=== PATIENT | female | born 1970 | race Caucasian/White ===

== ENCOUNTER 2016-12-26 15:41 | Inpatient (IN) | payer BC ==
--- NOTE | ~2016-12-26 | DS ---
Discharge Summary [facility] [address] [place]. [address] NAME: NIEVES APONTE : 72 STATUS : DIS Sandra PAT#: [id number] AGE: 46 ADM/REG DATE : 12/26/16 MR#: [id number] REPORT SERV DATE: 12/30/16 DICTATED BY: DANISH CRUMP DATE: 12/29/16 REPORT STATUS : Draft TRANSCRIBED BY: ANNE DATE: 12/29/16 ADMISSION DATE: 12/26/2016 DISCHARGE DATE: 12/29/2016 CONSULTATION: 1. Neurology. 2. Cardiology, Dr. Roman. INVASIVE PROCEDURES: None. DISCHARGE DIAGNOSES: 1. Paroxysmal atrial fibrillation. 2. Benign paroxysmal positional vertigo. 3. Hypercholesterolemia. 4. Chronic sinusitis. 5. History of cerebrovascular accident. DISCHARGE CONDITION: Stable. IMAGING: MRI brain without contrast. Impression: 1. No acute intracranial pathology. 2. Small 2 x 3 mm old lacunar infarct, left michelle. 3. Otherwise unremarkable noncontrast MRI of the brain. No acute CVA identified. Echocardiogram. Summary: Normal left ventricular size and systolic function. Estimated ejection fraction 55%. No regional wall motion abnormalities identified. Normal RV size and systolic function. Normal left atrial size. No significant valve disease. HISTORY OF PRESENT ILLNESS: For detailed HPI, please make reference to Dr. Juan R Urena's dictation on 12/26/2016. In brief, this is a 46-year-old female with medical history of dyslipidemia, who presented to the emergency department with extreme vertigo. The patient reported that she was in her usual state of health; however, on the morning of presentation, she woke up and felt slightly dizzy. There was associated nausea and vomiting. She went to the bed to lie down for an hour. When she tried to get up, she developed extreme vertigo that remained persistent. There was associated 10 episodes of vomiting and nausea, hence she decided to come to the ER for further evaluation. In the ER, temperature was 98.4, pulse was 118, blood pressure was 132/94, respiratory rate was 18. Physical exam was noted for a tachycardic rhythm, but regular. No murmurs, no rubs, no gallop. No extremity swelling. Neurologic exam showed cranial nerves 2 through 12 intact. Strength in all extremities 5/5. She was alert and oriented x3. Laboratory studies were essentially within normal limits. EKG in the ER showed sinus rhythm; however, EKG strip with the EMS was reported to have shown rapid atrial fibrillation. Hence, an assessment of severe vertigo with paroxysmal atrial fibrillation was made in the ER. The patient was admitted to the Hospitalist Service for further workup. HOSPITAL COURSE: Discharge Summary [address] [place]. [address] NAME: NIEVES APONTE : 72 STATUS : DIS Sandra PAT#: [id number] AGE: 46 ADM/REG DATE : 12/26/16 MR#: [id number] REPORT SERV DATE: 12/30/16 DICTATED BY: DANISH CRUMP DATE: 12/29/16 REPORT STATUS : Draft TRANSCRIBED BY: ANNE DATE: 12/29/16 1. Benign paroxysmal positional vertigo. Neurology was consulted. The patient underwent an MRI that showed an old left michelle lacunar infarct. The patient continued to have persistent vertigo in the hospital, which was made worse by rotating her head to the left and right. The patient was started on meclizine. Scopolamine patch was added. Physical Therapy was consulted, underwent some vestibular rehabilitation exercise. The patient's vertigo subsequently gradually improved during the course of this admission. At the time of discharge, the patient was able to ambulate without significant vertiginous symptoms. The patient was advised to continue meclizine p.r.n. and follow up with primary care physician as an outpatient. 2. Atrial fibrillation, noted by the EMS on their EKG strip en route to the hospital. Repeat EKG during the course of this admission showed sinus rhythm, but tachycardia. Cardiology was consulted. It was noted that the patient's heart rate remained within baseline in the low 60s. Hence no beta len was added to the patient's medication; however, the patient was started on Eliquis based on a CHADS-VASc score of 2. The patient had an echocardiogram that showed normal left ventricular ejection fraction. No valvular abnormalities. The patient was advised to start Eliquis and follow up with Cardiology as an outpatient. 3. Old left michelle lacunar stroke, which was noted on MRI of the head. No focal neurologic deficit was noted during this admission. The patient was advised to continue aspirin and statin. DISCHARGE DISPOSITION: Home. DISCHARGE ACTIVITIES: As tolerated. DISCHARGE MEDICATIONS: 1. Meclizine 25 mg p.o. q.8 hours p.r.n. 2. Apixaban 5 mg p.o. b.i.d. 3. Aspirin 81 mg p.o. daily. 4. Lipitor 80 mg p.o. at bedtime. 5. Flonase 1 spray in each nostril b.i.d. p.r.n. 6. Loratadine 10 mg p.o. daily. DISCHARGE FOLLOWUP: 1. Follow up with primary care physician within one week of discharge. 2. Follow up with Cardiology within two to three weeks of discharge. Greater than 30 minutes was used to prepare this patient's discharge, reconcile medication, and advise the patient on discharge plans and followup. DICTATED BY: MD IRVIN Caal/ANNE Discharge Summary [address] [address] NAME: NIEVES APONTE : 72 STATUS : DIS Sandra PAT#: [id number] AGE: 46 ADM/REG DATE : 12/26/16 MR#: [id number] REPORT SERV DATE: 12/30/16 DICTATED BY: DANISH CRUMP DATE: 12/29/16 REPORT STATUS : Draft TRANSCRIBED BY: ANNE DATE: 12/29/16 Danish Crump MD / [id number] CC: MD Shanda Caal M.D.
--- NOTE | ~2016-12-26 | CN ---
Consultation Report [facility] [address] [place]. [address] NAME: NIEVES FUCHS : 72 STATUS : ADM Sandra PAT#: [id number] AGE: 46 ADM/REG DATE : 12/26/16 MR#: [id number] REPORT SERV DATE: 12/27/16 DICTATED BY: JOSE FRANCISCO MARTINEZ DATE: 12/27/16 REPORT STATUS : Draft TRANSCRIBED BY: MODWilfrido DATE: 12/27/16 CONSULTATION NOTE DATE OF CONSULTATION: 12/27/2016 PRIMARY MOBILE APPLICATION TESTER: Dr. Ramirez. CHIEF COMPLAINT: Vertigo. REASON FOR CONSULTATION: Possible atrial fibrillation. SOURCE: The patient and her chart. HISTORY OF PRESENT ILLNESS: Ms. Fuchs is a very pleasant 46-year-old white woman with no significant past cardiac history. She was in her usual state of health until yesterday morning when she developed vertigo associated with one episode of nausea and vomiting. The dizziness became debilitating, closing her eyes seemed to help. She reports that the room appears to be spinning to the right. She has not had any syncope. Yesterday, she did have some fast palpitations, but not currently. She has not had any chest pain, shortness of breath. She does have occasional left ankle swelling. REVIEW OF SYSTEMS: All other systems are negative. ALLERGIES: NO KNOWN DRUG ALLERGIES. MEDICATIONS AT HOME: None. CARDIAC RISK FACTORS: None. SOCIAL HISTORY: The patient lives in [place]. She is . She has three children, alive and well. 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 FAMILY HISTORY: Mother had permanent pacemaker at age 77. PAST MEDICAL HISTORY: Significant for murmur as a child. No prior strokes. Status post tonsillectomy. Status post gallbladder surgery. Status post partial hysterectomy. PHYSICAL EXAMINATION: GENERAL: She is a well-developed, well-nourished, middle-aged white woman, in no acute distress. VITAL SIGNS: Blood pressure 119/56, pulse 65, temperature 98.4. HEENT: Anicteric. No xanthelasma, lips without cyanosis. NECK: No JVD, no thyromegaly, carotids 2+ and symmetrical without bruits. Consultation Report [facility] [id number] [place]. [address] NAME: NIEVES FUCHS : 72 STATUS : ADM Sandra PAT#: [id number] AGE: 46 ADM/REG DATE : 12/26/16 MR#: [id number] REPORT SERV DATE: 12/27/16 DICTATED BY: JOSE FRANCISCO MARTINEZ DATE: 12/27/16 REPORT STATUS : Draft TRANSCRIBED BY: ANNE DATE: 12/27/16 LUNGS: Clear to auscultation. No use of accessory muscles. COR: Regular rate and rhythm. Normal S1 and S2. No S3 or S4. No murmurs or rubs. PMI left 5th ICS, MCL . ABD: Positive bowel sounds, soft, non-tender. No bruits, no hepatomegaly. MS: No kyphosis. Normal muscle tone. EXT: Femoral and pedal pulses 2+ and symmetrical. No clubbing, cyanosis or edema. No varicosities. SKIN: No venous stasis changes. NEURO: Alert and oriented x 3. EKG: EKG reveals normal sinus rhythm, cannot exclude anterior myocardial infarction of undetermined age. The telemetry strips are mostly sinus rhythm. There are two strips from approximately 1537 hours and 1541 hours today which revealed paroxysmal atrial fibrillation with borderline rapid ventricular response. LABORATORY EXAMINATION: Chest x-ray, no acute cardiopulmonary process. The BNP level of 17. Sodium 139, potassium 3.8, chloride 107, carbon dioxide 23, glucose 81, BUN 13, creatinine 0.71. Cholesterol 183, HDL 45, LDL 121, triglycerides 87, CPK 61, MB less than 0.5. Troponin I less than 0.02. TSH of 3.74, free T4 of 0.83. White count of 8.2, hemoglobin 12.7, hematocrit 39.4, platelets 270,000. INR 1.2, PTT of 26.4. The MRI brain revealed no acute abnormality, small 2 mm to 3 mm old lacunar infarct left michelle, otherwise unremarkable noncontrast MRI of the brain, no acute CVA identified. ECHOCARDIOGRAM: Normal left ventricular systolic function, LVEF of 55%. No regional wall motion abnormalities. Normal RV size and systolic function. Normal left atrial size. No significant valve disease. IMPRESSION: 1. Paroxysmal atrial fibrillation identified on telemetry strips from 1537 hours and 1541 hours today. 2. CHADS2 score of 2 for stroke identified on MRI scanning. 3. Vertigo, thought by Neurology, possibly related to old or subacute stroke left michelle. 4. Hypercholesterolemia. RECOMMENDATIONS: 1. I agree with Eliquis therapy. 2. I agree with statin therapy. 3. Follow up with Dr. Ramirez in the office. 4. Should she have increased burden of atrial fibrillation, would consider atrial fibrillation ablation given her young age. LOIDA/ANNE Consultation Report [place] [address] [address] NAME: NIEVES FUCHS : 72 STATUS : ADM Sandra PAT#: [id number] AGE: 46 ADM/REG DATE : 12/26/16 MR#: [id number] REPORT SERV DATE: 12/27/16 DICTATED BY: JOSE FRANCISCO MARTINEZ DATE: 12/27/16 REPORT STATUS : Draft TRANSCRIBED BY: ANNE DATE: 12/27/16 Jose Francisco Martinez M.D. / [id number] CC: MD Shanda Caal M.D.
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
--- NOTE | ~2016-12-26 | CN ---
Consultation Report [facility] [address] [place]. [address] NAME: NIEVES APONTE : 72 STATUS : ADM Sandra PAT#: [id number] AGE: 46 ADM/REG DATE : 12/26/16 MR#: [id number] REPORT SERV DATE: 12/27/16 DICTATED BY: RABIA CAMACHO DATE: 12/27/16 REPORT STATUS : Draft TRANSCRIBED BY: MODWilfrido DATE: 12/27/16 NEUROLOGY CONSULTATION DATE OF CONSULTATION: 12/27/2016 REASON FOR CONSULTATION: Vertigo. HOSPITALIST: Dr. Danish Leung. HISTORY OF PRESENT ILLNESS: The patient is a 46-year-old female, who had an episode of sinusitis three weeks ago. She was placed on Cipro. She stated that she took her medication as prescribed. However, she still has had some sinusitis-type symptoms. Yesterday, she was making breakfast for her three daughters and at approximately 10:15 a.m., she turned quickly towards the left and had a sudden onset of vertigo. She felt that the room was spinning around. She had a hard time maintaining her balance and suddenly became nauseated and vomited. She was unable to drive, so she called 911, and was brought to the hospital for further evaluation and treatment. While on the ambulance ride, one of the paramedics noticed that her heart rate was rapid and she was in atrial fibrillation. This was paroxysmal. She also had some atrial fibrillation in the emergency department. When questioned more extensively, the patient mentioned that she was unaware that she had an abnormal heart rhythm. Today at 11:00 a.m., the patient got up, and she also had another episode of vertigo. She experienced spinning around, but today she felt like she was spinning around. She also had nausea without vomiting. She also mentions that she has a headache on a scale of 0 to 10. She states that it is bifrontal and has associated photophobia. The patient mentions that she has had "sinus headaches" throughout her life. She has had to come to the emergency department once for very severe headache. PAST MEDICAL HISTORY: GERD, heart murmur, and sinus headaches. PAST SURGICAL HISTORY: Total abdominal hysterectomy, tonsillectomy, adenoidectomy, and cholecystectomy. HOME MEDICATIONS: None. ALLERGIES: NONE. SOCIAL HISTORY: The patient is a . 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 She does not work. She is a homemaker. She has three children. She does not smoke, drink alcoholic beverages, or use illicit drugs. FAMILY HISTORY: Her mother is alive, has a pacemaker. Her father has heart issues and she is an only child. Consultation Report [address] [place]. [address] NAME: NIEVES APONTE : 72 STATUS : ADM Sandra PAT#: [id number] AGE: 46 ADM/REG DATE : 12/26/16 MR#: [id number] REPORT SERV DATE: 12/27/16 DICTATED BY: RABIA CAMACHO DATE: 12/27/16 REPORT STATUS : Draft TRANSCRIBED BY: ANNE DATE: 12/27/16 REVIEW OF SYSTEMS: For pertinent positives, please refer to HPI. PHYSICAL EXAMINATION: GENERAL: The patient is a 46-year-old female, who stands 5 feet 4 inches tall and weighs 182 pounds. VITAL SIGNS: She is afebrile. Heart rate 76, respiratory rate 16, O2 saturations on room air 96%, blood pressure 119/56. NEURO: The patient is alert she appears to be in mild discomfort. She is oriented x4. Communicates appropriately, is slightly anxious. Pupils are 3 mm. PERRLA. Cranial nerves 2 through 12 are intact, however there is slight nystagmus with lateral gaze more so to the left than the right. Vicente test, there is lateral lateralization over to the left. Vision via confrontation is full in both fay. Upper and lower extremity strength is equal bilaterally, 5/5. There is no sensory loss. DTRs are 3+ in the upper extremities and 2+ in the lower extremities. The patient did not get up to ambulate due to her vertigo. NECK: No carotid bruits, JVD, thyromegaly. CHEST: Lung sounds are clear. CARDIAC: Regular rate and rhythm. LABORATORY DATA: CBC is normal. BMP normal. Cholesterol values are mildly elevated with an LDL of 121. Chest x-ray, no acute changes. Echocardiogram, LVEF of 55%. No thrombus. No shunt. There is a strip from the emergency department yesterday that shows episode of paroxysmal atrial fibrillation, time is 1543 hours. ASSESSMENT/PLAN: 1. Benign paroxysmal positional vertigo most likely secondary to recent sinusitis. The patient will be placed on a scopolamine transdermal patch 1 mg every 72 hours. Her sinusitis should be treated symptomatically per the hospitalist. 2. History of stroke and the MRI for today revealed that the patient had an old stroke in the left michelle region. The patient will be started on Eliquis since she did show paroxysmal atrial fibrillation. She will be placed on aspirin 81 mg daily and Lipitor 80 mg at bedtime. 3. Cardiology will be consulted for her paroxysmal atrial fibrillation. Thank you again for including us in consultation. CESAR/ANNE Rabia Camacho DNP, [facility]- / [id number] Consultation Report [address] [address] NAME: NIEVES APONTE : 72 STATUS : ADM Sandra PAT#: [id number] AGE: 46 ADM/REG DATE : 12/26/16 MR#: [id number] REPORT SERV DATE: 12/27/16 DICTATED BY: RABIA CAMACHO DATE: 12/27/16 REPORT STATUS : Draft TRANSCRIBED BY: ANNE DATE: 12/27/16 CC: MD Shanda Caal M.D.
--- NOTE | ~2016-12-26 | PUL ---
[facility] [id number] [place]. [address] NAME: NIEVES APONTE : 72 STATUS : DIS Sandra PAT#: [id number] AGE: 46 ADM/REG DATE : 12/26/16 MR#: [id number] REPORT SERV DATE: 12/31/16 DICTATED BY: NIRALI ALMAGUER IV DATE: 12/30/16 REPORT STATUS : Draft TRANSCRIBED BY: MODL DATE: 12/30/16 PULMONARY FUNCTION TEST OVERNIGHT OXIMETRY Studies performed on room air. 6 hours and 5 minutes of data available for review. The mean oxygen saturation is 95.8%. Lowest scored saturation is 93%. The patient spent no time with oxygen saturations less than 88%. There were rare episodes of oxygen saturation variation of sawtooth pattern that appeared to be isolated events. IMPRESSION: No significant nocturnal hypoxemia on room air. There is no pattern consistent with obstructive sleep apnea. Of note, this study appears to demonstrate the same data as a different patient from the same night. It is unclear which patient's data belongs to. Clinical correlation is suggested. SUZETTE/ANNE Nirali Almaguer IV, M.D. / [id number] CC: MD Shanda Caal M.D.
[2016-12-26] MEDS ORDERED: *DENIES (16:14)
[2016-12-26 16:18] LABS: BASOPHILS 0.1 %; BASOPHILS ABSOLUTE 0.01 10/3/uL (0.0-0.16); EOSINOPHILS 0.3 %; EOSINOPHILS ABSOLUTE 0.03 10/3/uL (0.0-0.53); ER CBC TAT 0 Hrs 05 Mins; HEMATOCRIT 42.6 % (36.0-48.0); IMMATURE GRANULOCYTES 0.2 %; IMMATURE GRANULOCYTES ABSOLUTE 0.02 10/3/uL (0.0-0.11); LYMPHOCYTES 10.3 %; MEAN CORPUS HGB CONC 32.9 g/dL (32.0-36.0); MEAN CORPUSCULAR HEMOGLOB 28.2 pg (26.0-34.0); MEAN CORPUSCULAR VOLUME 85.9 fL (80-100); MEAN PLATELET VOLUME 9.6 fL (9.2-13.0); MONOCYTES 3.3 %; MONOCYTES ABSOLUTE 0.29 10/3/uL (0.21-1.20); NEUTROPHILS 85.8 %; NEUTROPHILS ABSOLUTE 7.47 10/3/uL (2.02-8.40); PLATELET COUNT 279 10/3/uL (150-400); RBC DISTRIBUTION WIDTH 13.1 % (12.0-16.0); RED CELL COUNT 4.96 10/6/uL (4.0-5.6); WHITE BLOOD CELLS 8.7 10/3/uL (4.5-10.5)
[2016-12-26 16:21] LABS: MANUAL DIFF NO %
[2016-12-26 16:27] LABS: INTERNATIONAL NORMAL RATI 1.1 UNITS (-); PARTIAL THROMBO TIME 34.5 SEC (22.5-37.2); PROTIME (NOT ORD) 14.1 SEC (12.0-14.5)
[2016-12-26 16:34] LABS: BUN (BLOOD UREA NITROGEN) 12 MG/DL (6-23); CALCIUM, SERUM 9.1 MG/DL (8.5-10.4); CHEST PAIN PROFILE TAT 0 Hrs 21 Mins; CHLORIDE, SERUM 104 MMOL/L (96-112); CO2 (CARBON DIOXIDE) 28 MMOL/L (24-34); CREATININE 0.75 MG/DL (0.55-1.02); GFR AFRICAN AMERICAN 112 ML/MIN (>=60); GFR NON AFRICAN AMERICAN 96 ML/MIN (>=60); GLUCOSE, SERUM 110 MG/DL (60-99); POTASSIUM, SERUM 3.7 MMOL/L (3.5-5.3); SODIUM, SERUM 138 MMOL/L (135-148); TROPONIN I <0.02 NG/ML (<0.05)
[2016-12-27 06:57] LABS: BASOPHILS 0.2 %; BASOPHILS ABSOLUTE 0.02 10/3/uL (0.0-0.16); EOSINOPHILS 1.2 %; HEMATOCRIT 39.4 % (36.0-48.0); HEMOGLOBIN 12.7 g/dL (12.0-16.0); IMMATURE GRANULOCYTES 0.1 %; IMMATURE GRANULOCYTES ABSOLUTE 0.01 10/3/uL (0.0-0.11); LYMPHOCYTES 22.5 %; LYMPHOCYTES ABSOLUTE 1.85 10/3/uL (0.67-4.30); MEAN CORPUS HGB CONC 32.2 g/dL (32.0-36.0); MEAN CORPUSCULAR HEMOGLOB 27.9 pg (26.0-34.0); MEAN CORPUSCULAR VOLUME 86.6 fL (80-100); MEAN PLATELET VOLUME 9.9 fL (9.2-13.0); MONOCYTES 7.1 %; MONOCYTES ABSOLUTE 0.58 10/3/uL (0.21-1.20); NEUTROPHILS 68.9 %; NEUTROPHILS ABSOLUTE 5.65 10/3/uL (2.02-8.40); PLATELET COUNT 270 10/3/uL (150-400); RBC DISTRIBUTION WIDTH 13.4 % (12.0-16.0); RED CELL COUNT 4.55 10/6/uL (4.0-5.6); WHITE BLOOD CELLS 8.2 10/3/uL (4.5-10.5)
[2016-12-27 07:01] LABS: MANUAL DIFF NO %
[2016-12-27 07:02] LABS: PARTIAL THROMBO TIME 26.4 SEC (22.5-37.2)
[2016-12-27 07:07] LABS: INTERNATIONAL NORMAL RATI 1.2 UNITS (-); PROTIME (NOT ORD) 14.6 SEC (12.0-14.5)
[2016-12-27 07:21] LABS: ALBUMIN 3.2 G/DL (3.5-5.0); ALKALINE PHOSPHATASE 76 U/L (45-117); BUN (BLOOD UREA NITROGEN) 13 MG/DL (6-23); CALCIUM, SERUM 8.8 MG/DL (8.5-10.4); CHLORIDE, SERUM 107 MMOL/L (96-112); CHOL/HDL RATIO(NOT ORDER) 4.1 (0-5); CHOLESTEROL 183 MG/DL (< 200); CPK 61 U/L (0-200); CREATININE 0.71 MG/DL (0.55-1.02); FREE T4 0.83 NG/DL (0.76-1.46); GFR AFRICAN AMERICAN 119 ML/MIN (>=60); GFR NON AFRICAN AMERICAN 103 ML/MIN (>=60); GLOBULIN 3.2 G/DL (2.5-4.1); HDL CHOLESTEROL 45 MG/DL (> 49); LDL CHOLESTEROL 121 MG/DL (< 130); NON-HDL CHOLESTEROL 138 MG/DL (< 160); POTASSIUM, SERUM 3.8 MMOL/L (3.5-5.3); SGOT(AST) 18 U/L (5-40); SGPT(ALT) 19 U/L (5-65); SODIUM, SERUM 139 MMOL/L (135-148); TOTAL BILIRUBIN 0.4 MG/DL (0-1.2); TOTAL PROTEIN 6.4 G/DL (6.0-8.5); TRIGLYCERIDE 87 MG/DL (< 150); TROPONIN I <0.02 NG/ML (<0.05)
[2016-12-27 07:22] LABS: CK-MB < 0.5 NG/ML; CO2 (CARBON DIOXIDE) 23 MMOL/L (24-34); GLUCOSE, SERUM 81 MG/DL (60-99)
[2016-12-28 08:41] LABS: BASOPHILS 0.3 %; BASOPHILS ABSOLUTE 0.02 10/3/uL (0.0-0.16); EOSINOPHILS 1.3 %; HEMATOCRIT 39.5 % (36.0-48.0); HEMOGLOBIN 12.7 g/dL (12.0-16.0); IMMATURE GRANULOCYTES 0.3 %; IMMATURE GRANULOCYTES ABSOLUTE 0.02 10/3/uL (0.0-0.11); LYMPHOCYTES 24.8 %; LYMPHOCYTES ABSOLUTE 1.84 10/3/uL (0.67-4.30); MEAN CORPUS HGB CONC 32.2 g/dL (32.0-36.0); MEAN PLATELET VOLUME 9.4 fL (9.2-13.0); MONOCYTES ABSOLUTE 0.37 10/3/uL (0.21-1.20); NEUTROPHILS 68.3 %; NEUTROPHILS ABSOLUTE 5.08 10/3/uL (2.02-8.40); PLATELET COUNT 271 10/3/uL (150-400); RBC DISTRIBUTION WIDTH 13.2 % (12.0-16.0); RED CELL COUNT 4.54 10/6/uL (4.0-5.6); WHITE BLOOD CELLS 7.4 10/3/uL (4.5-10.5)
[2016-12-28 08:42] LABS: MANUAL DIFF NO %
[2016-12-28 08:58] LABS: BUN (BLOOD UREA NITROGEN) 12 MG/DL (6-23); CALCIUM, SERUM 8.8 MG/DL (8.5-10.4); CHLORIDE, SERUM 107 MMOL/L (96-112); CO2 (CARBON DIOXIDE) 27 MMOL/L (24-34); CREATININE 0.86 MG/DL (0.55-1.02); GFR AFRICAN AMERICAN 95 ML/MIN (>=60); GFR NON AFRICAN AMERICAN 82 ML/MIN (>=60); GLUCOSE, SERUM 83 MG/DL (60-99); SODIUM, SERUM 139 MMOL/L (135-148)
[2016-12-29] MEDS ORDERED: HALF81 PO (14:54)
[2016-12-29] MEDS ORDERED: LIPITOR80 MG PO (14:54)
[2016-12-29] MEDS ORDERED: ELIQUIS 5 MG TAB5 MG PO (14:54)
[2016-12-29] MEDS ORDERED: CLARIT10 PO (14:55)
[2016-12-29] MEDS ORDERED: FLONASE NAS (14:55)
[2016-12-29] MEDS ORDERED: MCZ25 PO (14:56)
== END 2016-12-29 15:55 | disposition home or self-care (01) | DRG 149 ==
LOC: ER 15:41 → 1SO 21:35
PROVIDERS: Emergency Medicine; Hospitalist
DX: H81.10 Benign paroxysmal vertigo, unspecified ear (principal); I48.0 Paroxysmal atrial fibrillation; E66.9 Obesity, unspecified; F41.0 Panic disorder [episodic paroxysmal anxiety]; J32.9 Chronic sinusitis, unspecified; Z68.31 Body mass index [BMI] 31.0-31.9, adult; E78.00 Pure hypercholesterolemia, unspecified; K21.9 Gastro-esophageal reflux disease without esophagitis; Z90.49 Acquired absence of other specified parts of digestive tract; Z90.710 Acquired absence of both cervix and uterus; Z79.899 Other long term (current) drug therapy; Z86.73 Personal history of transient ischemic attack (TIA), and cerebral infarction without residual deficits
CPT/HCPCS: 70551; 71010; 80048; 80053; 80061; 82550; 82553; 83735; 83880; 84439; 84443; 84484; 84703; 85025; 85610; 85730; 93005; 93306; 94762; 96372; 96374; 97116-GP; 97161-GP; 99285; A9270-GY; G0378; J2405; J3360